=== PATIENT | male | born 1985 | race Two or more races ===

== ENCOUNTER 2022-06-14 20:33 | Emergency (ER) | payer MEDICAID ==
[~2022-06-14] VITALS: Ht 175.3 cm; Wt 69.9 kg
--- NOTE | 2022-06-14 22:28 | NUR ---
[employer] DRAWING BLOOD.
[2022-06-14 22:39] LABS: BASOPHILS % (AUTO) 0.2 % (0.0-2.0); EOSINOPHILS % (AUTO) 1.4 % (0.0-6.0); HEMATOCRIT 45 % (39-51); HEMOGLOBIN 14.9 g/dL (13.5-17.5); LYMPHOCYTES # (AUTO) 1.3 K/uL (0.8-4.8); LYMPHOCYTES % (AUTO) 15.9 % (20.0-44.0); MEAN CORPUSCULAR HGB CONC 33 g/dl (31.0-36.0); MEAN CORPUSCULAR VOLUME 80 fL (80-96); MONOCYTES # (AUTO) 0.6 K/uL (0.1-1.30); MONOCYTES % (AUTO) 7.7 % (2.0-12.0); NEUTROPHILS # (AUTO) 6.2 K/uL (1.8-8.9); NEUTROPHILS % (AUTO) 74.8 % (43.0-81.0); PLATELET COUNT (AUTO) 176 K/uL (150-450); RED BLOOD CELL COUNT(AUTO) 5.64 MIL/uL (4.5-6.0); WHITE BLOOD COUNT (AUTO) 8.3 K/uL (4.3-11.0)
--- NOTE | 2022-06-14 22:41 | NUR ---
US TECH AT PT'S BEDSIDE
[2022-06-14 23:01] LABS: CALCIUM, SERUM 8.7 mg/dL (8.5-10.1); CREATININE 1.1 mg/dL (0.6-1.3); POTASSIUM 3.9 mmol/L (3.5-5.1)
--- NOTE | 2022-06-14 23:29 | NUR ---
Patient discharged to home in stable condition. Written and verbal after care instructions given. Patient verbalizes understanding of instruction.
[2022-06-14] MEDS ORDERED: IBUPROFEN 400 MG TABLET PO ONE (23:30)
[2022-06-15 00:50] VITALS: BP 121/81
== END 2022-06-14 21:53 | disposition home or self-care (01) ==
LOC: ER 20:35
DX: I80.8 Phlebitis and thrombophlebitis of other sites (principal)
CPT/HCPCS: 36415; 80048-TC; 85025-TC; 93971-TC